=== PATIENT | female | born 1950 | race Caucasian/White ===

== ENCOUNTER 2017-01-31 06:55 | Day surgery (SDC) | payer MEDICARE, BC ==
[~2017-01-31 06:55] MED LIST: KETOROLAC TROMETHAMINE 0.45% 4 DROP/0.4 ML DROPERETTE OD PRN
[2017-01-31] MEDS: TETRACAINE HCL 0.5% OPH SOLN 2 ML OD PRN ×3 (07:12→08:00)
[2017-01-31] MEDS: TROPICAMIDE 1% OPH SOLN 3 ML OD PRN ×3 (07:12→07:36)
[2017-01-31] MEDS: BESIFLOXACIN HCL 0.6% OPH SUSP 5 ML BOTTLE OD PRN ×4 (07:13→08:19)
[2017-01-31] MEDS: CYCLOPENTOLATE 0.2%/PHENYLEPHRINE 1% OPH SOLN 2 ML OD PRN ×3 (07:13→07:36)
[2017-01-31] MEDS ORDERED: MIDAZOLAM 2 MG/2 ML INJ ONE ×2 (07:14)
[2017-01-31] MEDS ORDERED: EPINEPHRINE INJ/PF 1 MG/1 ML AMPULE ONE (07:52)
[2017-01-31] MEDS ORDERED: CHONDR SU A NA/HYALUR INTRAOC KIT (SURGICARE) ONE (07:52)
[2017-01-31] MEDS ORDERED: LIDOCAINE 1% INJ-PF (10 MG/ML) 30 ML SDV ONE (07:52)
--- NOTE | 2017-02-03 20:47 | [facility] OPERATIVE REPORT E ---
[facility] Operative Report NAME: SHARMIN LEI AGE: 66Y DATE OF SURGERY: 01/31/2017 ROOM: PREOPERATIVE DIAGNOSIS: CATARACT, RIGHT EYE. POSTOPERATIVE DIAGNOSIS: CATARACT, RIGHT EYE. OPERATION: Cataract extraction with intraocular lens implant of the right eye. SURGEON: DINAH SAPP M.D. ANESTHESIA: Topical. PROCEDURE: After obtaining appropriate consent, the patient's right eye was prepped and draped in sterile fashion as well as the surgeon in a sterile manner and cataract surgery was started. First a paracentesis blade was used to make a small side-port incision. Viscoelastic was used to inflate the anterior chamber. Next a 2.4 mm incision was made with the paracentesis blade. A continuous capsulorrhexis incision was made using a cystotome and Utrata forceps. Following this, hydrodissection was carried out to make the lens fully loose and mobile and it was rotated 90 degrees. Following this, a jrdlst-qth-qaiketf technique was used to phacoemulsify the lens with a CDE of 10.68. The remaining cortex was removed with irrigation/aspiration. Provisc was instilled into the capsular bag to inflate the bag. A SN60WF, 22.5 diopter lens was placed. The remaining viscoelastic material was removed with irrigation/aspiration. Following this, a 10-0 nylon suture was used to close the incision and it was found to be watertight. Vigamox was instilled in the eye and a protective shield was placed over the eye. The patient returned to the postoperative recovery in stable condition. DICTATING PHYSICIAN: DINAH SAPP M.D. [id number] PHY#: [id number] ID: [id number] JOB#: [id number] ACCT: [id number] cc:DINAH SAPP M.D. >
--- NOTE | 2017-02-03 20:48 | DISCHARGE SUMMARY E ---
Discharge Summary NAME: SHARMIN LEI : 1950 AGE: 66Y ADMITTED: 01/31/2017 DISCHARGED: 01/31/2017 HISTORY: This is a 66-year-old patient who underwent cataract extraction of the right eye. DIAGNOSIS: Cataract, right eye. 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 The patient should be on a regular diet. No bending at the waist. No heavy lifting. She should use her Besivance, Ilevro, and Durezol at 3:00 p.m. at 8:00 p.m. and sleep with a rigid shield, and I will see them for the 1-day postoperative tomorrow. DICTATING PHYSICIAN: DNIAH SAPP M.D. [id number] PHY#: [id number] ID: [id number] JOB#: [id number] ACCT: [id number] cc:DINAH SAPP M.D. >
== END 2017-01-31 09:11 | disposition home or self-care (01) ==
LOC: SC 06:55
PROVIDERS: ATTEND Internal Medicine
PROC: 08RJ3JZ Replacement of Right Lens with Synthetic Substitute, Percutaneous Approach (ICD-10-PCS; principal; 2017-01-31 08:00)
DX: H25.813 Combined forms of age-related cataract, bilateral (principal); I10 Essential (primary) hypertension; E66.9 Obesity, unspecified; E11.9 Type 2 diabetes mellitus without complications; Z79.84 Long term (current) use of oral hypoglycemic drugs; Z88.5 Allergy status to narcotic agent; Z79.82 Long term (current) use of aspirin; Z79.899 Other long term (current) drug therapy; Z68.43 Body mass index [BMI] 50.0-59.9, adult
CPT/HCPCS: 82962; 66984; V2632; J2250; J3490 ×2; A9270; J0171; 142